=== PATIENT | female | born 1970 | race Caucasian/White ===

== ENCOUNTER 2025-05-27 21:51 | Emergency (ER) | payer SELFPAY ==
[~2025-05-27] VITALS: Ht 160 cm; Wt 75.0 kg
[2025-05-27 22:12] VITALS: O2SAT 98
[2025-05-27 23:17] LABS: BASOPHILS % 1.5 % (0.0-2.0); EOSINOPHILS % 2.9 % (0.0-5.0); HEMATOCRIT. 40.9 % (36.0-48.0); HEMOGLOBIN. 13.5 g/dL (12.0-16.0); LYMPHOCYTES % 21.4 % (20.0-50.0); MEAN PLATELET VOLUME 9.9 fl (7.4-10.4); MONOCYTES % 6.3 % (2.0-8.0); NEUTROPHILS % 67.9 % (40.0-76.0); PLATELET 249 x1000/uL (130-400); RED BLOOD CELL COUNT 4.92 mill/uL (4.2-5.4); RED CELL DISTRIBUTION WIDTH 14.7 % (11.6-14.6)
[2025-05-27 23:26] LABS: HCG SCREEN NEGATIVE
[2025-05-27 23:27] LABS: CREATININE 0.9 mg/dL (0.6-1.0)
[2025-05-27 23:28] LABS: ETHANOL BLOOD < 10 mg/dL (<10); UREA NITROGEN BLOOD 14 mg/dL (9-23)
[2025-05-27 23:29] LABS: TROPONIN I HIGH SENSITIVITY 10 ng/L (3.0-34)
[2025-05-27] MEDS: LABETALOL 5MG/ML 4ML INJ IV ONE (23:29)
[2025-05-28] MEDS: LABETALOL 5MG/ML 4ML INJ IV ONE (00:26)
[2025-05-28] MEDS ORDERED: LABETALOL 5MG/ML 4ML INJ IV ONE (01:00)
[2025-05-28] MEDS ORDERED: LISI10TA26 MT (04:11)
[2025-05-28 04:20] VITALS: BP 171/86; PULSE 65; RESP 16; TEMP 36.9; O2SAT 98
== END 2025-05-28 04:35 | disposition home or self-care (01) ==
LOC: ER 21:51
DX: I16.0 Hypertensive urgency (principal); I10 Essential (primary) hypertension; J45.909 Unspecified asthma, uncomplicated
CPT/HCPCS: 80048; 80320; 84703; 85025; 84484; 36415; 71045; 93005; 96374; 99291; 96376; J3490 ×2; G0480